=== PATIENT | male | born 1975 | race Caucasian/White ===

== ENCOUNTER 2017-05-04 18:34 | Emergency (ER) | payer OTHER ==
[~2017-05-04] VITALS: Ht 188 cm; Wt 106.1 kg
[2017-05-04 18:39] VITALS: TEMP 36.7; Ht 188 cm; Wt 106.1 kg
[2017-05-04 19:08] LABS: BASO % 0.2 %; BASO ABS # 0.02 K/uL (0-0.2); COMPLETE YES; EOS % 0.2 %; HEMATOCRIT 47.7 % (42-52); IG% 0.2 %; LYMPH % 9.3 %; LYMPH ABS # 1.14 K/uL (1.2-3.4); MEAN CELL VOLUME 87.2 fL (80-100); MEAN CORPUSCULAR HEMOGLOBIN 31.1 pg (25-34); MEAN CORPUSCULAR HGB CONC 35.6 g/dl (32-36); MEAN PLATELET VOLUME 8.9 fL (7.4-10.4); MONO % 5.9 %; NEUT % 84.2 %; PLATELET COUNT 179 K/uL (130-400); RED BLOOD COUNT 5.47 M/uL (4.7-6.1); WHITE BLOOD COUNT 12.24 K/uL (4.8-10.8)
[2017-05-04 19:23] LABS: URINE APPEARANCE TURBID (CLEAR); URINE BILIRUBIN NEG (NEG); URINE COLOR DK YELLOW; URINE EPITHELIAL CELL AUTO >30 /lpf (0-5); URINE NITRITE NEG (NEG); URINE PH 8.5 (4.5-7.5); URINE SPECIFIC GRAVITY 1.027 (1.000-1.030); UROBILINOGEN NEG (NEG); ZZUR CULT IF INDIC CLEAN CATCH NO
[2017-05-04 19:24] LABS: MANUAL MICROSCOPIC REQUIRED? NO; REVIEW REQ? NO
--- NOTE | 2017-05-04 19:26 | DIAGNOSTIC IMAGING REPORT ---
ABD/PELVIS WITHOUT FOR STONE CLINICAL HISTORY: 42 years-old Male presenting with L flank pain radiating to L abdomen. TECHNIQUE: Multidetector CT of the abdomen and pelvis was performed without the use of intravenous contrast. IV contrast: None. A dose lowering technique was used consistent with the principles of ALARA (as low as reasonably achievable). COMPARISON: 05/27/2014. CT DOSE (mGy.cm): The estimated cumulative dose is 1761.64 mGy.cm. FINDINGS: Pole Peeler topogram: Unremarkable. Lung bases: Lungs and pleural spaces clear. Normal heart size. No pericardial or pleural effusion. Liver: Normal morphology. Normal density. Biliary: No gross biliary ductal dilatation allowing for noncontrast technique. Normal gallbladder. Pancreas: Normal noncontrast appearance. Spleen: Normal noncontrast appearance. Adrenal glands: Normal noncontrast appearance. Kidneys and ureters: Normal noncontrast appearance of the right kidney. Right ureter normal. No calculi in the right or left kidney. However, left perinephric fat stranding and fluid. Mild to moderate left pelvocaliectasis. Mild proximal left hydroureter with an obstructing 5 mm calculus at the level of L4-5. The remainder of the mid to distal left ureter is normal. Bladder: Incompletely evaluated secondary to underdistention. Pelvic organs: Prostate and seminal vesicles normal. Bowel: Normal appendix. No bowel obstruction. Peritoneal cavity: No free fluid or intraperitoneal gas. Lymph nodes: No gross lymphadenopathy allowing for noncontrast technique. Vasculature: Normal noncontrast appearance. Abdominal wall: Normal. Musculoskeletal: Normal. IMPRESSION: 1. Obstructing 5 mm proximal to mid left ureteral calculus at the level of L4-5 with resultant mild to moderate left hydroureteronephrosis. The degree of perinephric fluid could suggest calyceal rupture. No additional renal calculi. Electronically signed by: Andrea Boyle M.D. 05/04/2017 7:25 PM Dictated Date/Time: 05/04/2017 7:18 PM
[2017-05-04 19:27] LABS: BUN/CREATININE RATIO 10.3 (10-20); CALCIUM 9.1 mg/dl (8.5-10.1); CREATININE 1.42 mg/dl (0.60-1.40); POTASSIUM 3.9 mmol/L (3.5-5.1)
--- NOTE | 2017-05-04 19:29 | EMERGENCY ROOM VISIT NOTE ---
History First contact with patient: 18:40 Chief Complaint: BACK PAIN Stated Complaint: PAIN IN LOWER BACK AND LEFT SIDE History of Present Illness The patient is a 42 year old male who presents to the Emergency Room via private vehicle accompanied by with complaints of "pain and lower back and left side". The patient states that at 1400 yesterday he began with pain in the left lower back that radiates around to the left lower quadrant. He does have a known kidney stone but is unsure which side. He has never had stones in the past. He states that throughout the day the pain has worsened. He states that he has had chills but no fever. He denies any blood in the urine, chest pain or shortness of breath. He rates his overall pain as a 4/10. Review of Systems A complete 10-point Review of Systems was discussed with the patient, with pertinent positives and negatives listed in the History of Present Illness. All remaining Review of Systems questions can be considered negative unless otherwise specified. Past Medical/Surgical History Inflamed appendix Family History No significant family history Social History Smoking Status: Never Smoker Alcohol Use: occasionally Marital Status: Housing Status: lives with family Occupation Status: employed Current/Historical Medications Scheduled Ondasetron Odt (Zofran Odt), 4 MG SL Q6H Tamsulosin Hcl (Flomax), 0.4 MG PO DAILY Scheduled PRN Oxycodone Ir (Roxicodone Ir), 1-2 TAB PO Q4H PRN for Pain Physical Exam Vital Signs Date Time Temp Pulse Resp B/P (MAP) Pulse Ox O2 Delivery O2 Flow Rate FiO2 05/04/17 20:26 73 18 145/96 97 Room Air 05/04/17 18:39 36.7 86 18 155/99 99 Room Air Physical Exam VITAL SIGNS - Vital signs and nursing notes were reviewed. Stable. GENERAL -42-year-old male appearing his stated age who is in no acute distress. Communicates well with provider and answers questions appropriately. SKIN - Without rashes. No petechial rashes. HEAD - NC/AT. LUNGS - Chest wall symmetric without accessory muscle use, intercostals retractions, or central cyanosis. Normal vesicular breath sounds CTA B/L. No wheezes, rales, or rhonchi appreciated. CARDIAC - RRR with S1/S2. No murmur, rubs, or gallops appreciated. ABDOMEN - Abdominal contour normal without pulsations or visible masses. BS normoactive all four quadrants. No tenderness, palpable masses, hepatosplenomegaly, or ascites noted. No CVA tenderness. Medical Decision & Procedures ER Provider Diagnostic Interpretation: ABD/PELVIS WITHOUT FOR STONE CLINICAL HISTORY: 42 years-old Male presenting with L flank pain radiating to L abdomen. TECHNIQUE: Multidetector CT of the abdomen and pelvis was performed without the use of intravenous contrast. IV contrast: None. A dose lowering technique was used consistent with the principles of ALARA (as low as reasonably achievable). COMPARISON: 05/27/2014. CT DOSE (mGy.cm): The estimated cumulative dose is 1761.64 mGy.cm. FINDINGS: Tool Planner topogram: Unremarkable. Lung bases: Lungs and pleural spaces clear. Normal heart size. No pericardial or pleural effusion. Liver: Normal morphology. Normal density. Biliary: No gross biliary ductal dilatation allowing for noncontrast technique. Normal gallbladder. Pancreas: Normal noncontrast appearance. Spleen: Normal noncontrast appearance. Adrenal glands: Normal noncontrast appearance. Kidneys and ureters: Normal noncontrast appearance of the right kidney. Right ureter normal. No calculi in the right or left kidney. However, left perinephric fat stranding and fluid. Mild to moderate left pelvocaliectasis. Mild proximal left hydroureter with an obstructing 5 mm calculus at the level of L4-5. The remainder of the mid to distal left ureter is normal. Bladder: Incompletely evaluated secondary to underdistention. Pelvic organs: Prostate and seminal vesicles normal. Bowel: Normal appendix. No bowel obstruction. Peritoneal cavity: No free fluid or intraperitoneal gas. Lymph nodes: No gross lymphadenopathy allowing for noncontrast technique. Vasculature: Normal noncontrast appearance. Abdominal wall: Normal. Musculoskeletal: Normal. IMPRESSION: 1. Obstructing 5 mm proximal to mid left ureteral calculus at the level of L4-5 with resultant mild to moderate left hydroureteronephrosis. The degree of perinephric fluid could suggest calyceal rupture. No additional renal calculi. Electronically signed by: Andrea Boyle M.D. 05/04/2017 7:25 PM Dictated Date/Time: 05/04/2017 7:18 PM Laboratory Results 05/04/17 19:00 Red Blood Count 5.47, Mean Corpuscular Volume 87.2, Mean Corpuscular Hemoglobin 31.1, Mean Corpuscular Hemoglobin Concent 35.6, Mean Platelet Volume 8.9, Neutrophils (%) (Auto) 84.2, Lymphocytes (%) (Auto) 9.3, Monocytes (%) (Auto) 5.9, Eosinophils (%) (Auto) 0.2, Basophils (%) (Auto) 0.2, Neutrophils # (Auto) 10.32, Lymphocytes # (Auto) 1.14, Monocytes # (Auto) 0.72, Eosinophils # (Auto) 0.02, Basophils # (Auto) 0.02 05/04/17 19:00 Test 05/04/17 19:00 05/04/17 19:04 White Blood Count 12.24 K/uL (4.8-10.8) Red Blood Count 5.47 M/uL (4.7-6.1) Hemoglobin 17.0 g/dL (14.0-18.0) Hematocrit 47.7 % (42-52) Mean Corpuscular Volume 87.2 fL (80-100) Mean Corpuscular Hemoglobin 31.1 pg (25-34) Mean Corpuscular Hemoglobin Concent 35.6 g/dl (32-36) Platelet Count 179 K/uL (130-400) Mean Platelet Volume 8.9 fL (7.4-10.4) Neutrophils (%) (Auto) 84.2 % Lymphocytes (%) (Auto) 9.3 % Monocytes (%) (Auto) 5.9 % Eosinophils (%) (Auto) 0.2 % Basophils (%) (Auto) 0.2 % Neutrophils # (Auto) 10.32 K/uL (1.4-6.5) Lymphocytes # (Auto) 1.14 K/uL (1.2-3.4) Monocytes # (Auto) 0.72 K/uL (0.11-0.59) Eosinophils # (Auto) 0.02 K/uL (0-0.5) Basophils # (Auto) 0.02 K/uL (0-0.2) RDW Standard Deviation 39.9 fL (36.4-46.3) RDW Coefficient of Variation 12.4 % (11.5-14.5) Immature Granulocyte % (Auto) 0.2 % Immature Granulocyte # (Auto) 0.02 K/uL (0.00-0.02) Anion Gap 7.0 mmol/L (3-11) Est Creatinine Clear Calc Drug Dose 86.2 ml/min Estimated GFR () 69.1 Estimated GFR (Non- 59.6 BUN/Creatinine Ratio 10.3 (10-20) Calcium Level 9.1 mg/dl (8.5-10.1) Total Bilirubin 0.8 mg/dl (0.2-1) Aspartate Amino Transf (AST/SGOT) 18 U/L (15-37) Alanine Aminotransferase (ALT/SGPT) 24 U/L (12-78) Alkaline Phosphatase 71 U/L (45-117) Total Protein 7.7 gm/dl (6.4-8.2) Albumin 4.4 gm/dl (3.4-5.0) Globulin 3.3 gm/dl (2.5-4.0) Albumin/Globulin Ratio 1.3 (0.9-2) Urine Color DK YELLOW Urine Appearance TURBID (CLEAR) Urine pH 8.5 (4.5-7.5) Urine Specific [place] 1.027 (1.000-1.030) Urine Protein NEG (NEG) Urine Glucose (UA) NEG (NEG) Urine Ketones 2+ (NEG) Urine Occult Blood NEG (NEG) Urine Nitrite NEG (NEG) Urine Bilirubin NEG (NEG) Urine Urobilinogen NEG (NEG) Urine Leukocyte Esterase NEG (NEG) Urine WBC (Auto) 0 /hpf (0-5) Urine RBC (Auto) 0-4 /hpf (0-4) Urine Hyaline Casts (Auto) 1-5 /lpf (0-5) Urine Epithelial Cells (Auto) >30 /lpf (0-5) Urine Bacteria (Auto) NEG (NEG) Medications Administered Medications (Trade) Dose Ordered Sig/Keven Route Start Time Stop Time Status Last Admin Dose Admin Sodium Chloride 1,000 ml @ 999 mls/hr Q1H1M STAT IV 05/04/17 19:35 05/04/17 20:35 DC 05/04/17 19:46 999 MLS/HR Tamsulosin HCl (Flomax Cap) 0.4 mg NOW STAT PO 05/04/17 19:41 05/04/17 19:42 DC 05/04/17 19:45 0.4 MG Morphine Sulfate (MoRPHine SULFATE INJ) 4 mg NOW STAT IV 05/04/17 20:14 05/04/17 20:15 DC 05/04/17 20:19 4 MG Ondansetron HCl (Zofran Inj) 4 mg NOW STAT IV 05/04/17 20:14 05/04/17 20:15 DC 05/04/17 20:19 4 MG Medical Decision Patient was seen and evaluated as above. He presents to us today with left flank pain. He subjectively and objectively appears to have a kidney stone. CT scan was obtained of the abdomen and pelvis without contrast and reveals a stone in the left ureter. This results in swelling of the kidney. He was also potential calyceal rupture. His pain was managed with morphine and Zofran which was requested after he was here for quite some time. He was given 1 L of normal saline secondary to his creatinine being 1.4. Slight leukocytosis. No evidence of urinary infection. He was offered inpatient management for his stone requested go home with outpatient follow-up. I believe this is reasonable. I did enlist the help of our wrapper caser to establish a urology appointment for the patient. He will be given oxycodone, Zofran and also Flomax. He will strain all urine. He was educated upon management, educated upon worrisome symptoms which to return, had questions as per the discharge, and was discharged home in good condition. No red flags were identified and the [place] drug monitoring system upon check for the oxycodone. In the evaluation treatment this patient following differential diagnoses were entertained: Ureteral calculi, appendicitis, diverticulitis, AAA, among others. Impression Primary Impression: Ureteral calculus Additional Impression: Hydronephrosis due to obstruction of ureter Departure Information Dispostion Home / Self-Care Condition GOOD Prescriptions Tamsulosin Hcl (FLOMAX) 0.4 Mg Cap 0.4 MG PO DAILY for 14 Days, #14 CAP Prov: iBgg Chandler PA-C 05/04/17 Ondasetron Odt (ZOFRAN ODT) 4 Mg Tab 4 MG SL Q6H for Nausea, #20 TAB Prov: Bigg Chandler PA-C 05/04/17 Oxycodone Ir (Roxicodone Ir) 5 Mg Tab 1-2 TAB PO Q4H Y for Pain, #20 TAB For Initial Treatment Prov: Bigg Chandler PA-C 05/04/17 Referrals Yung Weiner M.D. (PCP) Patient Instructions My [facility] Additional Instructions You have been treated in the Emergency Department today for a Kidney Stone ( Nephrolithiasis) which is in your Left ureter causing a blockage. You have received pain medicine in the emergency department which impairs your ability to operate a vehicle. It is illegal for you to drive after receiving these medicines. You have been prescribed Oxy IR to be used for pain control. This is a narcotic medication. You cannot drive or consume alcohol while on this medicine. This medicine should only be used for pain that cannot be controlled with over-the- counter pain medicines. You have been prescribed zofran to be used for any nausea or vomiting. Take as prescribed. You have been prescribed Flomax 0.4 mg to be taken ONCE daily. This medicine has been prescribed as it can help relax the smooth muscles of the urinary tract increasing transit time of the kidney stone. STOP once stone passes. Next dose tomorrow night. For pain control, you can use the following [id number] medicines (if >12 yo): - Regular strength (325mg/tab) Tylenol (acetaminophen) 2 tabs every 4-6 hours as needed. Do not exceed 12 tablets in a 24 hour period. Avoid taking more than 3 grams (3000 mg) of Tylenol per day. This includes any other sources of acetaminophen you may take on a regular basis. - Regular strength (200 mg/tab) Advil (ibuprofen) 1-2 tabs every 4-6 hours as needed. Do not exceed a dose of 3200 mg per day. You have been provided a strainer and specimen collection cup. You should strain your urine to collect any passed stones. Your stones can be placed into the specimen cup and taken to your Urologist for further evaluation. OUR CASE MANAGEMENT TEAM WILL HELP WITH THIS You have been provided the contact information for the on-call Urologist. You should contact the Urologist's office tomorrow to establish a follow-up appointment from today's Emergency Department visit. Return to the Emergency Department if your symptoms persist despite the treatment plan outlined above or if you develop the following symptoms: intractable pain, fever, chills, or large amounts of blood in your urine. Problem Qualifiers
[2017-05-04 19:30] LABS: ALB/GLOB RATIO 1.3 (0.9-2)
[2017-05-04] MEDS ORDERED: SODIUM CHLORIDE 0.9% 1000ML 1,000 ML IV STA (19:35)
[2017-05-04] MEDS ORDERED: OXYCODONE IR HOME PACK PO STA (19:40)
[2017-05-04] MEDS ORDERED: TAMSULOSIN HCL 0.4 MG CAP PO STA (19:41)
[2017-05-04] MEDS ORDERED: ONDANSETRON HOME PACK 4MG OD TAB PO STA (19:41)
[2017-05-04] MEDS ORDERED: MoRPHine SULFATE 4 MG/ML 1 ML CARP\\VIAL IV STA (20:14)
[2017-05-04] MEDS ORDERED: ONDANSETRON INJ 2 MG/ML 2 ML VIAL IV STA (20:14)
[2017-05-04 20:26] VITALS: BP 145/96; PULSE 73; O2SAT 97
[2017-05-04] MEDS ORDERED: TAMS0.4C38 PO (20:40)
[2017-05-04] MEDS ORDERED: ONDA4TAB10 SL (20:40)
[2017-05-04] MEDS ORDERED: OXYC1TAB3 PO (20:40)
== END 2017-05-04 20:49 | disposition home or self-care (01) ==
LOC: C.EDB 18:35 → C.EDC 20:49
DX: N13.2 Hydronephrosis with renal and ureteral calculous obstruction (principal); Z87.19 Personal history of other diseases of the digestive system

== ENCOUNTER → 2017-05-06 | Outpatient (CLI) | payer OTHER ==
[~2017-05-06] MED LIST: ONDA4TAB10 SL; OXYC-90 PO; TAMS0.4C38 PO
== END | disposition home or self-care (01) ==
LOC: C.LABSPEC 17:12
PROVIDERS: ATTEND Urology
DX: N20.1 Calculus of ureter (principal)

== ENCOUNTER → 2017-06-18 | Outpatient (CLI) | payer OTHER ==
[~2017-06-18] MED LIST changes: -OXYC-90 PO; +OXYC1TAB3 PO; -TAMS0.4C38 PO
--- NOTE | 2017-06-18 15:44 | DIAGNOSTIC IMAGING REPORT ---
KUB HISTORY: Follow-up study in a patient with a left-sided kidney stone COMPARISON: CT abdomen and pelvis 05/04/2017 FINDINGS: The bowel gas pattern is non-obstructive. There is no organomegaly. Previously noted left ureteral calculus at the level of L4-L5 is no longer identified. No definite nephrolithiasis or ureteral calculi identified. No pneumoperitoneum or pneumatosis. No fracture. IMPRESSION: No renal or ureteral stones identified. Electronically signed by: Didier Avalos M.D. 06/18/2017 3:43 PM Dictated Date/Time: 06/18/2017 3:41 PM
--- NOTE | 2017-06-18 15:56 | DIAGNOSTIC IMAGING REPORT ---
(RENAL)RETROPERITON COMP CLINICAL HISTORY: 42 years-old Male presenting with N20.1 Ureteric [id number]. TECHNIQUE: Real-time grayscale and limited color Doppler ultrasound imaging of the kidneys and bladder was performed. COMPARISON: CT from 05/04/2017. FINDINGS: Right kidney: Normal echogenicity of renal parenchyma. Right kidney measures 11.4 cm. No hydronephrosis. No convincing evidence of calculus or mass. Normal perfusion. Left kidney: Normal echogenicity of renal parenchyma. Left kidney measures 10.9 cm. No hydronephrosis. No convincing evidence of calculus or mass. Normal perfusion. Bladder: No bladder wall thickening. Bilateral ureteral jets visualized. Other: None. IMPRESSION: 1. Normal renal ultrasound. No obstruction. Electronically signed by: Andrea Boyle M.D. 06/18/2017 3:55 PM Dictated Date/Time: 06/18/2017 3:54 PM
== END | disposition home or self-care (01) ==
LOC: C.ULTR 15:05
PROVIDERS: ATTEND Urology
DX: N20.1 Calculus of ureter (principal)

== ENCOUNTER → 2017-12-16 | Outpatient (CLI) | payer OTHER ==
--- NOTE | 2017-12-16 15:58 | DIAGNOSTIC IMAGING REPORT ---
ULTRASOUND KIDNEYS AND BLADDER CLINICAL HISTORY: Nephrolithiasis. COMPARISON STUDY: Abdominal CT dated 05/04/2017. TECHNIQUE: Real-time, grayscale, and color flow sonography of the kidneys and bladder is performed. Images are reviewed in the transverse and longitudinal planes. FINDINGS: Kidneys: The kidneys are normal in size and echotexture. The right kidney measures 11.8 x 4.8 x 5.7 cm and the left kidney measures 10.9 x 5.6 x 4.3 cm. There is no hydronephrosis. A 4 mm shadowing calculus is seen in the left kidney. There is no sonographic evidence of contour deforming renal mass lesion. No perinephric fluid is identified. Bladder: The bladder is normal in appearance. Bilateral ureteral jets were seen. IMPRESSION: 1. The kidneys are normal in size and without hydronephrosis. 2. A nonobstructing calculus is seen in the left kidney. 3. The bladder is normal as imaged. Electronically signed by: Zack Choudhary M.D. 12/16/2017 3:56 PM Dictated Date/Time: 12/16/2017 3:55 PM
== END | disposition home or self-care (01) ==
LOC: C.ULTR 15:07
PROVIDERS: ATTEND Urology
DX: N20.0 Calculus of kidney (principal)